=== PATIENT | male | born 1980 | race Caucasian/White ===

== ENCOUNTER → 2021-06-18 09:51 | Outpatient (CLI) | payer OTHER, SELFPAY ==
--- NOTE | ~2021-06-18 | XR_ITS ---
XR hip RT min 2V DATE: 06/18/2021 10:09 INDICATION: Chronic right hip pain TECHNIQUE: AP and lateral views COMPARISON: None FINDINGS: Severe right hip joint spaces are very prominent spurring, addition to prominent patchy scl erosis of the right femoral head consistent with severe right hip osteoarthritis. No fracture or dislocation is evident. The pubic symphysis and sacroiliac joints are intact. IMPRESSION: Severe right hip arthritis Reviewed, dictated and finalized at location B. MA COUNSELLOR IMPRESSION: Severe right hip arthritis
== END ==
PROVIDERS: Visit Provider Chiropractor
DX: M16.0 Bilateral primary osteoarthritis of hip (principal)
CPT/HCPCS: 73502

== ENCOUNTER 2024-11-18 13:59 | Emergency (ER) | payer OTHER, SELFPAY ==
[2024-11-18] VITALS (10 sets, daily range): BP systolic 158–174; BP diastolic 95–98; PULSE 115–127; RESP 11–31; TEMP 36.6; O2SAT 90–98
--- NOTE | ~2024-11-18 | CT_ITS ---
CLINICAL INDICATION: Epigastric pain and transaminitis COMPARISON: None. TECHNIQUE: Multiple contiguous axial images of the abdomen and pelvis were performed following the ad ministration of with 100 mL Omnipaque-350 intravenous contrast The dose-length product (DLP) was 788.83 mGy-cm. Automated exposure control and iterative reconstruction technique were employed. FINDINGS/OBSERVATIONS: Visualized lower thorax: The bilateral lung bases are clear. The heart is of normal size, without pericardial effusion. Small hiatal hernia is present. Liver: The liver demonstrates homogeneous enhancement and is enlarged measuring 24 cm in longitudinal dimens ion. Gallbladder and biliary system: The gallbladder is only minimally distended, and otherwise unremarkable. Pancreas: The pancreas enhances homogeneously without ductal dilatation. Inflammatory change is identified with in the lesser sac, without global enlargement of the pancreas to suggest acute pancreatitis. Spleen: The spleen enhances homogeneously and is not enlarged. Kidneys: The bilateral kidneys enhance symmetrically without hydronephrosis or renal calculi. Adrenal glands: Unremarkable. Gastrointestinal tract: Colonic diverticulosis without surrounding inflammatory change. Appendix: The air-filled appendix is of normal caliber (axial series, images 96 through 125) Vasculature: Unremarkable. The portal vein is patent. Lymph nodes: Multiple pathologically enlarged lymph nodes are identified within the marcelo hepatis, an abnormal fin ding. The largest measuring 16 mm in short axis dimension. Scattered nonpathologically enlarged lymph nodes within the retroperitoneum and at the root of the me sentery. Pelvic structures: The bladder is decompressed, with thickened maldonado, and otherwise unremarkable. The prostate gland is not enlarged. Free fluid is identified within the pelvis, never a normal finding in a male patient. Body wall and musculoskeletal: Degenerative disease at the level of L5/S1 with osteophyte formation, disc space narrowing, endplate changes and vacuum phenomena. IMPRESSION: Pathologically enlarged lymph nodes within the marcelo hepatis with inflammatory change in the lesser s ac. Free fluid within the pelvis, never a normal finding in a male patient. No discrete pancreatic mass is visualized, however given the constellation of findings, repeat examin ation with pancreatic mass protocol is recommended (either CT or MRI) for further evaluation. Reviewed, dictated and finalized at location A. IMPRESSION: Pathologically enlarged lymph nodes within the marcelo hepatis with inflammatory change in the lesser sac. Free fluid within the pelvis, never a normal finding in a male patient. No discrete pancreatic mass is visualized, however given the constellation of f indings, repeat examination with pancreatic mass protocol is recommended (eithe r CT or MRI) for further evaluation.
--- OUTSIDE RECORDS SUMMARY | 2024-11-18 14:03 | XMS_ITS | Continuity of Care Document ---
Author Organization [facility] Address [address] [facility] [address] [place] [address] Phone Care Team Providers Care Emergency Services Dispatcher Name Role Phone Kamini Zelaya Unavailable Unavailable Procedures Procedure Date Remove Eyelid Lesion Advance Directives Directive Yes / No Effective Date File Name No Information Encounters Encounter Description Practice Location Reason(s) For Visit Diagnoses Date Provider Providers Copied on Encounter [facility], [address], [place], [place], [id number], [place] tel:[phone] SEC [facility][note 3] No Information 0-200 7 Nathalie Suárez. [address] [facility] , [address], [place], [address], [place]. tel:[phone] Referring Provider: Joe Lopez, [address] [facility], [place], [address]. tel:[phone] Family History Family Member Type Diagnosis Age At Onset No Information Payers Payer name Insurance type Covered democrat ID Authoriza tion(s) No Information Social History Type Description Quantity Date Captured Comments Sex Male Smoking Status No Information Chief Complaint And Reason For Visit No Information Reason For Referral Reason For Referral No Information History Of Present Illness Encounter Date Complaint History Of Prese nt Illness No Information Functional Status Date Functional Assessmen t No Information Instructions Date Instruction Additional Infor mation No Information Assessments Type Assessment Date No Information Patient Care Teams Name Effective Dates (start - stop) Status Members No Information
--- NOTE | 2024-11-18 14:05 | ECG_ITS ---
Test Date: 2024-11-18 14:08:17 Measurements Intervals [place] Rate: 126 P: -2 [place]: 139 QRS: 6 QRSD: 88 T: 2 QT: 335 QTc: 486 Interpretive Statements SINUS TACHYCARDIA NONSPECIFIC ST & T-WAVE ABNORMALITY ABNORMAL RHYTHM ECG No previous ECG available for comparison Electronically Signed On 11-19-2024 17:03:50 CDT by Jagdeep Connelly M.D.
--- OUTSIDE RECORDS SUMMARY | 2024-11-18 15:06 | XMS_ITS | Continuity of Care Document ---
Author Organization [facility] Address [address] [facility] [address] [place] [address] Phone Care Team Providers Care Cardiac Catheterization Technician Name Role Phone Kamini Zelaya Unavailable Unavailable Procedures Procedure Date Remove Eyelid Lesion Advance Directives Directive Yes / No Effective Date File Name No Information Encounters Encounter Description Practice Location Reason(s) For Visit Diagnoses Date Provider Providers Copied on Encounter [facility], [address], [place], [place], [id number], [place] tel:[phone] SEC [facility] No Information 0-200 7 Nathalie Suárez. [address] [facility] , [address], [place], [address], [place]. tel:[phone] Referring Provider: Joe Lopez, [address] [facility], [place], [address]. tel:[phone] Family History Family Member Type Diagnosis Age [...]
--- NOTE | 2024-11-18 15:09 | PC.NURSE ---
pt states that he is unable to void and provide a urine sample at this time. pt educated to utilize call button when he feels he will be able to provide the urine sample
[2024-11-18 15:14] LABS: Basophils Absolute Auto 0.1 K/mm3 (0.0-0.1); Basophils Percent Auto 0.7 % (0.2-1.2); Eosinophils Absolute Auto 0.1 K/mm3 (0-0.3); Eosinophils Percent Auto 0.9 % (0-4.4); Hematocrit 39.3 % (42.0-52.0); Hemoglobin 12.9 g/dL (14.0-18.0); Immature Granulocyte Absolute 0.05 K/mm3 (0.00-0.031); Immature Granulocyte Percent A 0.4 % (0-0.5); Lymphocytes Absolute Auto 1.77 K/mm3 (0.9-3.2); Lymphocytes Percent Auto 15.4 % (18.3-44.2); Mean Corpuscular HGB Conc 32.8 g/dl (32-36); Mean Corpuscular Hemoglobin 33.7 pg (26-34); Mean Corpuscular Volume 102.6 fl (80-100); Monocytes Absolute Auto 0.9 K/mm3 (0.1-0.6); Monocytes Percent Auto 7.5 % (2.6-8.5); Neutrophils Absolute Auto 8.7 K/mm3 (1.3-6.7); Neutrophils Percent Auto 75.1 % (45.5-73.1); Platelet Count Result 135 k/mm3 (150-375); Red Blood Count 3.83 M/mm3 (4.6-6.20); Red Cell Distribution Width 11.9 % (11.5-14.5); White Blood Count 11.5 K/mm3 (4.5-10.0)
[2024-11-18 15:24] LABS: Alanine Aminotransferase 58 U/L (6-50); Albumin Level 4.4 g/dL (3.5-5.1); Alkaline Phosphatase 183 U/L (38-126); Anion Gap 19 mmol/L (4-12); Aspartate Amino Transferase 161 U/L (17-59); Bilirubin,Total 1.5 mg/dL (0.2-1.3); Blood Urea Nitrogen 4 mg/dL (9-20); Calcium 8.9 mg/dL (8.4-10.2); Carbon Dioxide 24 mmol/L (22-30); Chloride 101 mmol/L (98-107); Estimated CRCL calculation 160 ml/min; Estimated Glomerular Filt Rate > 60; Glucose 175 mg/dL (65-110); Lipase 146 U/L (23-300); Potassium 2.9 mmol/L (3.4-5.0); Sodium 144 mmol/L (137-145)
[2024-11-18] MEDS: SODIUM CHLORIDE 0.9% IV 1,000 ML 999 ML IV CONT ×2 (16:09)
[2024-11-18] MEDS: ONDANSETRON INJ 4 MG/2 ML VIAL IV PUSH (16:09)
[2024-11-18 16:28] LABS: Add Urine Microscopic? YES; Appearance Urine Clear (Clear); Bacteria Urine None Seen /hpf; Bilirubin Urine 1+ (Negative); Blood Urine Negative (Negative); Color Urine Dark Yellow (Yellow); Glucose Urine UA Negative (Negative); Ketones Urine 1+ mg/dL (Negative); Leukocyte Esterase Ur Negative LEU/UL (Negative); Need Manual Microscopic Reviewed; Nitrate Urine Negative (Negative); Protein Urine 3+ mg/dL (Negative); RBC Urine 0-2 /hpf (0-2); Specific Grav Ur 1.025 (1.001-1.035); Squamous Epithelial Cell Urine None Seen /hpf (Few); WBC Urine 0-5 /hpf (0-3); pH Urine 6.5 (5.0-9.0)
--- NOTE | 2024-11-18 17:26 | ED_ITS ---
HPI - General Adult General Chief complaint: Unspecified Stated complaint: Feeling fatigued, nausea, diarrhea, tremors Time Seen by Provider: 11/18/24 14:49 History of Present Illness HPI narrative: Patient is a 44-year-old male who presents ER with fatigue as well as nausea/vomiting/diarrhea. Ongoing over last week. Diarrhea is slowing down. He feels like he is very dehydrated. Patient has just returned from a turkey hunting trip in [place]. While up there he was consuming alcohol heavily. Related Data Allergies Allergy/AdvReac Type Severity Reaction Status Date / Time No Known Allergies Allergy Unverified 11/18/24 14:01 Review of Systems 2 Review of Systems: All systems reviewed & are unremarkable except as noted in HPI and below Constitutional: Constitutional: Reports no additional constitutional complaints ENT: Reports system reviewed and no additional complaints, except as documented Cardiovascular: Cardiovascular: Reports no additional cardiovascular complaints Respiratory: Respiratory: Reports no additional respiratory complaints Gastrointestinal: Gastrointestinal: Reports no additional gastrointestinal complaints PMF Past Medical History Medical History (Updated 11/18/24 @ 17:57 by Elijah Reeves MD) Healthy adult male Surgical History Surgical History (Updated 11/18/24 @ 17:48 by Elijah Reeves MD) No history of previous surgery Exam 2 Narrative: GENERAL: Well-appearing, well-nourished, and in no acute distress. HEAD: Normocephalic, atraumatic. ENT: Mucous membranes moist. NECK: Supple. CHEST: Clear to auscultation. No respiratory distress. HEART: Tachycardic and regular. Normal peripheral pulses. ABDOMEN: Soft, nontender, nondistended. EXTREMITIES: Normal range of motion. No edema. SKIN: Warm, dry, no rash. NEURO: Alert and oriented x3. PSYCH: Normal mood and affect. Course Course Emergency Course: Patient resting comfortably. Discussed abnormalities and blood work and CT scan. Abdomen is is soft and nontender. Will need outpatient follow-up to have repeat imaging more specifically looking at the pancreas to rule out a pancreatic mass. Patient verbalized understanding of this plan. Suspect majority of his symptoms currently related to alcoholic hepatitis and pancreatitis from his drinking binge that everything is beginning to resolve. Potassium replaced with oral potassium chloride. Vital Signs Vital signs: Vital Signs Temperature 97.9 F 11/18/24 14:02 Pulse Rate 127 H 11/18/24 14:02 Respiratory Rate 18 11/18/24 14:02 Blood Pressure 168/97 H 11/18/24 14:02 Pulse Oximetry 98 11/18/24 14:02 Oxygen Delivery Room Air 11/18/24 14:02 Temperature 97.9 F 11/18/24 14:02 Pulse Rate 115 H 11/18/24 16:12 Respiratory Rate 20 11/18/24 16:12 Blood Pressure 174/98 H 11/18/24 14:48 Pulse Oximetry 93 11/18/24 16:12 Oxygen Delivery Room Air 11/18/24 14:02 Medical Decision Making Vital Signs Vital Signs: Vital Signs Temperature 97.9 F 11/18/24 14:02 Pulse Rate 127 H 11/18/24 14:02 Respiratory Rate 18 11/18/24 14:02 Blood Pressure 168/97 H 11/18/24 14:02 Pulse Oximetry 98 11/18/24 14:02 Oxygen Delivery Room Air 11/18/24 14:02 Temperature 97.9 F 11/18/24 14:02 Pulse Rate 115 H 11/18/24 16:12 Respiratory Rate 20 11/18/24 16:12 Blood Pressure 174/98 H 11/18/24 14:48 Pulse Oximetry 93 11/18/24 16:12 Oxygen Delivery Room Air 11/18/24 14:02 Lab Data 11/18/24 15:03 11/18/24 15:03 Labs: Lab Results 11/18/24 11/18/24 Range/Units 15:03 16:13 WBC 11.5 H (4.5-10.0) K/mm3 RBC 3.83 L (4.6-6.20) M/mm3 Hgb 12.9 L (14.0-18.0) g/dL Hct 39.3 L (42.0-52.0) % MCV 102.6 H (80-100) fl MCH 33.7 (26-34) pg MCHC 32.8 (32-36) g/dl RDW 11.9 (11.5-14.5) % Plt Count 135 L (150-375) k/mm3 MPV 9.0 (7.4-10.4) fl Immature Gran % (Auto) 0.4 (0-0.5) % Neut % (Auto) 75.1 H (45.5-73.1) % Lymph % (Auto) 15.4 L (18.3-44.2) % Rooks % (Auto) 7.5 (2.6-8.5) % Eos % (Auto) 0.9 (0-4.4) % Baso % (Auto) 0.7 (0.2-1.2) % Lymph # (Auto) 1.77 (0.9-3.2) K/mm3 Rooks # (Auto) 0.9 H (0.1-0.6) K/mm3 Eos # (Auto) 0.1 (0-0.3) K/mm3 Baso # (Auto) 0.1 (0.0-0.1) K/mm3 Abs Immat Gran (auto) 0.05 H (0.00-0.031) K/mm3 Absolute Neuts (auto) 8.7 H (1.3-6.7) K/mm3 Absolute Nucleated RBC 0.000 (0.0-0.012) K/mm3 Nucleated RBC % 0.0 (0.0-0.2) % Sodium 144 (137-145) mmol/L Potassium 2.9 L (3.4-5.0) mmol/L Chloride 101 (98-107) mmol/L Carbon Dioxide 24 (22-30) mmol/L Anion Gap 19 H (4-12) mmol/L BUN 4 L (9-20) mg/dL Creatinine 0.66 L (0.7-1.3) mg/dL Estim Creat Clear Calc 160 ml/min Estimated GFR > 60 (59 - ) Glucose 175 H (65-110) mg/dL Calcium 8.9 (8.4-10.2) mg/dL Total Bilirubin 1.5 H (0.2-1.3) mg/dL AST 161 H (17-59) U/L ALT 58 H (6-50) U/L Alkaline Phosphatase 183 H (38-126) U/L Total Protein 10.0 H (6.3-8.2) g/dL Albumin 4.4 (3.5-5.1) g/dL Lipase 146 (23-300) U/L Urine Color Dark yellow (Yellow) Urine Appearance Clear (Clear) Urine pH 6.5 (5.0-9.0) Ur Specific [place] 1.025 (1.001-1.035) Urine Protein 3+ H (Negative) mg/dL Urine Glucose (UA) Negative (Negative) mg/dL Urine Ketones 1+ H (Negative) mg/dL Ur Blood (Man) Negative (Negative) Urine Nitrate Negative (Negative) Urine Bilirubin 1+ H (Negative) Urine Urobilinogen 2.0 H (<2.0) mg/dL Add Ur Microanalysis Reviewed Leukocyte Esterase Rfl Negative (Negative) TIMO/UL Urine RBC 0-2 (0-2) /hpf Urine WBC 0-5 (0-3) /hpf Ur Squamous Epith Cells None seen (Few) /hpf Urine Bacteria None seen /hpf Urine Casts 6-10 Imaging Data Radiologist's impression: ITS Impressions Abdomen/Pelvis CT 11/18/24 16:22 IMPRESSION: Pathologically enlarged lymph nodes within the marcelo hepatis with inflammatory change in the lesser sac. Free fluid within the pelvis, never a normal finding in a male patient. No discrete pancreatic mass is visualized, however given the constellation of findings, repeat examination with pancreatic mass protocol is recommended (either CT or MRI) for further evaluation. ECG Data EKG #1: ECG completion date: 11/18/24 ECG completion time: 14:08 EKG Interpretation: tachycardia (126), sinus rhythm, non-specific ST changes, normal QRS and normal QT Discharge Plan Discharge Clinical Impression: Alcoholic hepatitis, Alcohol-induced pancreatitis, Dehydration, Intra-abdominal lymphadenopathy, Acute hypokalemia Patient Disposition: Home Condition: Stable Instructions: Pancreatitis (ED), Alcoholic Hepatitis (ED) Additional Instructions: Return to the emergency department if you develop severe abdominal pain, severe nausea and vomiting to the point where you are unable to keep down fluids, if you develop chest pain or difficulty breathing, blood in your stool, dizziness or fainting, or if you develop any other new or concerning symptoms as these could be signs of more serious medical illness. Try to stay well hydrated. You have enlarged lymph nodes in your abdomen as well as fluid in your lower pelvis. You need a CT scan pancreas protocol to further evaluate your pancreas to hopefully rule out pancreatic cancer. Discontinue alcohol use. Patient Language: Kinyarwanda Prescriptions: New ondansetron 4 mg tablet,disintegrating 4 mg PO Q6H PRN (Reason: nausea and vomiting) Qty: 10 0RF Follow-up/Referrals: Camacho Hansen MD [Physician] - 1 Week UNKNOWN,DOCTOR [Primary Care Provider] -
[2024-11-18] MEDS: POTASSIUM CHLORIDE 20 MEQ ER TABLET 40 MEQ PO (18:11)
--- NOTE | 2024-11-18 18:14 | PC.NURSE ---
patient family member requested to speak to Dr Reeves again prior to discharge. MD aware and currently at bedside.
== END 2024-11-18 18:08 | disposition home or self-care (01) ==
PROVIDERS: Emergency Provider Emergency Medicine
DX: K70.10 Alcoholic hepatitis without ascites (principal); K85.20 Alcohol induced acute pancreatitis without necrosis or infection; R59.0 Localized enlarged lymph nodes; E87.6 Hypokalemia
CPT/HCPCS: 36415; 74177; 80053; 81001; 83690; 85025; 93005; 96361; 96374; 99284; A9270; J2405; J7030; Q9967